=== PATIENT | male | born 1970 | race Caucasian/White ===

== ENCOUNTER → 2019-10-02 | Day surgery (SDC) | payer BC ==
[2019-09-30 10:37] VITALS: BMI 34.8
[~2019-10-02] MED LIST: LACTATED RINGERS 1,000 ML IV SCH; LIDOCAINE 1% INJ 10MG/ML (20 ML MDV) ONE; PROPOFOL 10 MG/ML 20 ML VIAL IV ONE
[2019-10-02 07:44] VITALS: TEMP 97
[2019-10-02 07:44] LABS: Glucose,Whole Blood 145 mg/dL (75-99)
--- NOTE | 2019-10-02 07:50 | P.GSHP ---
History of Present Illness H&P Date: 10/02/19 Chief Complaint: Screening colonoscopy This a 49-year-old male presents today for screening colonoscopy. Patient denies any significant GI complaints. Past Medical History Past Medical History: Diabetes Mellitus, Hyperlipidemia, Thyroid Disorder Additional Past Medical History / Comment(s): GRAVES DISEASE, History of Any Multi-Drug Resistant Organisms: None Reported Past Surgical History: Appendectomy, Hernia Repair Past Anesthesia/Blood Transfusion Reactions: Motion Sickness Past Psychological History: No Psychological Hx Reported Smoking Status: Never smoker Past Alcohol Use History: Occasional Past Drug Use History: None Reported - Past Family History Mother Family Medical History: Cancer Father Family Medical History: Cancer Medications and Allergies Home Medications Medication Instructions Recorded Confirmed Type Levothyroxine Sodium [Synthroid] 200 mcg PO DAILY 07/08/19 09/30/19 History Lisinopril [Zestril] 2.5 mg PO W/SUPPER 07/08/19 09/30/19 History Simvastatin 40 mg PO W/SUPPER 07/08/19 09/30/19 History metFORMIN HCL 500 mg PO DAILY 07/08/19 09/30/19 History Allergies Allergy/AdvReac Type Severity Reaction Status Date / Time No Known Allergies Allergy Verified 09/30/19 10:32 Surgical - Exam Vital Signs Temp Pulse Resp BP Pulse Ox 97 F L 78 20 131/71 98 10/02/19 07:30 10/02/19 07:30 10/02/19 07:30 10/02/19 07:30 10/02/19 07:30 - General well developed, well nourished, no distress - Eyes PERRL - ENT normal pinna, normal nares - Neck no masses - Respiratory normal expansion - Cardiovascular Rhythm: regular - Abdomen Abdomen: soft, non tender Results - Labs Abnormal Lab Results - Last 24 Hours (Table) 10/02/19 Range/Units 07:34 POC Glucose (mg/dL) 145 H (75-99) mg/dL Assessment and Plan Assessment: We'll perform screening colonoscopy
--- NOTE | 2019-10-02 07:59 | P.OP ---
Date of Procedure: 10/02/19 Preoperative Diagnosis: Screening colonoscopy Postoperative Diagnosis: Normal colonoscopy Procedure(s) Performed: Colonoscopy Anesthesia: MAC Surgeon: Chris Amezquita Pathology: none sent Condition: stable Disposition: PACU Description of Procedure: PROCEDURE: The patient was placed on the endoscopy table in the lateral position. Digital rectal examination was performed which revealed no abnormalities. The prostate was symmetrical without nodules. Flexible colonoscope was then placed in the patient's anus and passed throughout the entire colon. The ileocecal valve was visualized. The cecum, ascending, transverse, descending and sigmoid colon were normal. The rectum was normal as well. There were no masses, polyps or diverticula noted in the entire colon. SUMMARY OF FINDINGS: Normal colonoscopy.
[2019-10-02 08:08] VITALS: RESP 16
[2019-10-02 08:20] VITALS: BP 124/81; PULSE 66
== END | disposition home or self-care (01) ==
LOC: ORWHC2ENDO 07:09
PROVIDERS: ATTEND Surgery
DX: Z12.11 Encounter for screening for malignant neoplasm of colon (principal); E11.9 Type 2 diabetes mellitus without complications; E78.5 Hyperlipidemia, unspecified; E05.00 Thyrotoxicosis with diffuse goiter without thyrotoxic crisis or storm; E66.9 Obesity, unspecified; Z79.84 Long term (current) use of oral hypoglycemic drugs; Z79.890 Hormone replacement therapy; Z79.899 Other long term (current) drug therapy; Z90.49 Acquired absence of other specified parts of digestive tract; Z80.9 Family history of malignant neoplasm, unspecified; Z68.34 Body mass index [BMI] 34.0-34.9, adult
CPT/HCPCS: J2001; J2704; G0121